=== PATIENT | male | born 1955 | race Caucasian/White ===

== ENCOUNTER → 2025-04-05 08:16 | Outpatient (REF) | payer BC, SELFPAY | LOC: RAD 08:16 | PROVIDERS: ATTENDING PHYSICIAN Internal Medicine; FAMILY PHYSICIAN Internal Medicine | DX: E78.00 Pure hypercholesterolemia, unspecified (principal); R60.0 Localized edema; Z84.89 Family history of other specified conditions | CPT/HCPCS: 75571 ==

== ENCOUNTER → 2025-04-12 12:59 | Outpatient (REF) | payer BC, SELFPAY | LOC: HWRCS 12:59 | PROVIDERS: ATTENDING PHYSICIAN Internal Medicine; FAMILY PHYSICIAN Internal Medicine | DX: E78.00 Pure hypercholesterolemia, unspecified (principal); R60.0 Localized edema; Z84.89 Family history of other specified conditions | CPT/HCPCS: 93306 ==